=== PATIENT | male | born 1970 | race Caucasian/White ===

== ENCOUNTER 2024-01-18 01:45 | Emergency (ER) | payer BC ==
[~2024-01-18] VITALS: Ht 172.7 cm; Wt 118.2 kg
[~2024-01-18 01:45] MED LIST: CLON0.1T PO
[2024-01-18 02:19] LABS: BASOPHILS % (AUTO) 0.5 % (0.0-2.0); EOSINOPHILS % (AUTO) 3.1 % (1.0-6.0); HEMATOCRIT 42.8 % (41-53); HEMOGLOBIN 14.5 g/dL (13.5-17.5); LYMPHOCYTES # (AUTO) 4.8 K/uL (1.0-4.8); LYMPHOCYTES % (AUTO) 47.6 % (22.0-44.0); MEAN CORPUSCULAR HEMOGLOBIN 31.2 pg (26.0-34.0); MEAN CORPUSCULAR HGB CONC 33.9 G/dL (31.0-37.0); MEAN CORPUSCULAR VOLUME 92 fL (80-100); MONOCYTES % (AUTO) 9.4 % (2.0-9.0); NEUTROPHILS % (AUTO) 39.4 % (40.0-70.0); PLATELET COUNT (AUTO) 151 K/uL (150-450); RED BLOOD CELL COUNT(AUTO) 4.65 MIL/uL (4.50-5.90); RED CELL DISTRIBUTION WIDTH 13.6 % (11.5-14.5); WHITE BLOOD COUNT (AUTO) 10.2 K/uL (4.5-11.0)
[2024-01-18] MEDS: SODIUM CHLORIDE 0.9% 1,000 ML IV ONE ×2 (02:25→05:02)
[2024-01-18 02:28] LABS: CALCIUM, TOTAL 8.4 mg/dL (8.8-10.5); CREATININE 1.26 mg/dL (0.60-1.30); POTASSIUM 3.8 mmol/L (3.5-5.1)
[2024-01-18 02:32] LABS: INR 1.2 (0.9-1.1); PROTHROMBIN TIME 12.3 SEC (9.4-11.6)
[2024-01-18] MEDS: NITROGLYCERIN 2% (1 GM=INCH) OINTMENT PACKET TP ONE (02:47)
[2024-01-18 02:51] LABS: ALBUMIN 3.7 g/dL (3.4-5.0); BILIRUBIN,TOTAL 0.4 mg/dL (0.1-1.0); TOTAL PROTEIN, SERUM 7.7 g/dL (6.4-8.2); TROPONIN I-HIGH SENSITIVITY 9 ng/L (<76)
[2024-01-18] MEDS ORDERED: IOHEXOL 350 MG/ML 100 ML VIAL ONE (03:04)
[2024-01-18] MEDS ORDERED: SODIUM CHLORIDE 0.9% 100 ML ONE (03:04)
[2024-01-18 03:16] LABS: LACTIC ACID 2.4 mmol/L (0.4-2.0)
[2024-01-18 05:50] LABS: TROPONIN I-HIGH SENSITIVITY 9 ng/L (<76)
[2024-01-18] MEDS: CefTRIAXone 1 GM/DEXTROSE 50 ML IV ONE (06:43)
[2024-01-18 06:45] LABS: GLUCOMETER DEV NAME(LOC) ERT.5; GLUCOSE,POINT OF CARE 116 MG/DL (70-110)
[2024-01-18 07:10] VITALS: BP 97/51; PULSE 70; RESP 20; TEMP 98.9
== END 2024-01-18 07:54 | disposition admitted as inpatient to this hospital (09) ==
LOC: EMS 03:03
DX: I71.019 Dissection of thoracic aorta, unspecified (principal); I10 Essential (primary) hypertension
CPT/HCPCS: 99291; 70450; 96365; 96361; 71045; 80053; 82550; 82962; 83605; 83880; 84484; 85025; 85610; 85730; 87040; 86850; 86900; 86901; 71275; 93005; 36415; J0696; Q9967; J7030; J7050